=== PATIENT | female | born 2005 | race Caucasian/White ===

== ENCOUNTER 2025-07-09 15:14 | Emergency (ER) | payer OTHER, SELFPAY ==
[2025-07-09 15:27] VITALS: BP 132/88; PULSE 78; RESP 18; TEMP 36.4; O2SAT 100
--- NOTE | 2025-07-09 15:44 | ED_ITS ---
HPI - Female Genitourinary General Chief complaint: Urogenital-Female Stated complaint: Uti Symptoms Time Seen by Provider: 07/09/25 15:35 Source: patient, RN notes reviewed and old records reviewed Mode of arrival: ambulatory Limitations: no limitations History of Present Illness HPI Narrative: 19 year old female who presents to [facility] care with complaints of suprapubic pressure and burning with urination for the past 2 days. Patient reports burning is mainly at the end of her stream of urine. Patient reports no pain to her back, some suprapubic pressure though. She states that she has not had any fevers chills or sweats,denies any nausea or vomiting or any diarrhea.Reports no concern for STD exposure. MD elicited complaint: dysuria Onset (ago): day(s) (2) Location of symptoms: suprapubic and urethra Severity: mild Severity scale (1-10): 3 Vaginal discharge: none Vaginal bleeding: none Urinary symptoms: Dysuria Treatment prior to arrival: none Related Data Home Medications ?Medication ?Instructions ?Recorded ?Confirmed ?Last Taken ?Type levonorgestrel 0.15 mg-ethinyl 07/09/25 Unknown Hist ory estradiol 30 mcg tablets,3 mos pack(91) Allergies Allergy/AdvReac Type Severity Reaction Status Date / Time No Known Allergies Allergy Verified 07/09/25 15:34 Review of Systems Review of Systems: CONSTITUTIONAL: Denies fever, chills, or sweats. CARDIOVASCULAR: Denies chest pain, palpitations, or edema. RESPIRATORY: Denies cough or dyspnea. GASTROINTESTINAL: Reports suprapubic pressure, no other abdominal pain, no nausea, vomiting, or diarrhea. GENITOURINARY: Reports dysuria, frequency, urgency. Denies flank pain or hematuria. SKIN: Denies rash or itching. MUSCULOSKELETAL: Denies back pain or myalgia. Denies CVA tenderness NEUROLOGIC: Denies headache All systems reviewed & are unremarkable except as noted in HPI and below PMFSH Social History Social History (Updated 07/11/25 @ 07:54 by Lizbet Snowden APRN) Alcohol intake: never Substance use: never Gender identity (if verbalized by the patient): Female Comments At time of signature, agree with nursing past medical, surgical, social and family history. There is no relevant family history pertinent to the presenting complaint Exam Narrative: GENERAL: Well-appearing, well-nourished, and in no acute distress. HEAD: Normocephalic, atraumatic. NECK: Supple.no lymphadenopathy CHEST: Clear to auscultation. No respiratory distress. SAO2 100% on room air HEART: Regular rate and rhythm. No murmur heard. Normal peripheral pulses. ABDOMEN: Soft, suprapubic pressure, no McBurney point tenderness, nondistended, normal active bowel sounds. No CVA tenderness, burning with urination EXTREMITIES: Normal range of motion. No edema. SKIN: Warm, dry, no rash. NEURO: No focal deficits. Alert and oriented x3. Course Course Emergency Course: Patient is aware of diagnosis, understands and agrees to treatment plan.? Anticipatory guidance given.? Patient agrees to follow-up as directed and is aware of reasons to seek care at the emergency department. Portions of this record may have been created with voice recognition software Level of Care: Express Care Visit Vital Signs Vital signs: Vital Signs Temperature 36.4 C 07/09/25 15:27 Pulse Rate 78 07/09/25 15:27 Respiratory Rate 18 07/09/25 15:27 Blood Pressure 132/88 07/09/25 15:27 Pulse Oximetry 100 07/09/25 15:27 Temperature 36.4 C 07/09/25 15:27 Pulse Rate 78 07/09/25 15:27 Respiratory Rate 18 07/09/25 15:27 Blood Pressure 132/88 07/09/25 15:27 Pulse Oximetry 100 07/09/25 15:27 reviewed MDM - Female Genitourinary MDM Narrative Medical decision making narrative: Exam findings and UA show no acute concerns or changes; patient is non-toxic appearing and is in no distress.? Patient is appropriate for outpatient treatment and follow-up. Differential Diagnosis Differential diagnosis: Likely urinary tract infection, cystitis and other (dysuria. suprapubic pressure) Medical Records Attestation: I reviewed the patient's medical records. Lab Data Attestation: I reviewed the patient's lab results. Lab results narrative: urine dip:yellow clear no blood noted, negative nitrite, trace leukocytes Labs: Lab Results 07/09/25 Range/Units 15:46 POC Urine Color Yellow POC Urine Clarity Clear POC Urine pH 6.5 POC Ur Specif Roann 1.010 POC Urine Protein Negative (Negative) POC Ur Glucose (UA) Negative (Negative) POC Urine Ketones Negative (Negative) POC Urine Blood Trace (Negative) POC Urine Nitrite Negative (Negative) POC Urine Bilirubin Negative (Negative) POC Urine Urobilinogen 0.2 POC U Leukocyte Esteras Trace (Negative) reviewed Critical Care Time Critical Care Time Critical Care Time: No Discharge Plan Discharge Clinical Impression: Urinary tract infection symptoms Patient Disposition: Home Condition: Stable Instructions: Antibiotic Form, Urinary Tract Infection in Women (ED) Additional Instructions: Increase fluids especially cranberry juice and water Avoid caffeine and carbonated beverages Antibiotic as directed Tylenol/ibuprofen for pain or fever per Package instructions Follow-up with her primary care provider if further problems or concerns Recheck if you have fever over 101, nausea and vomiting. If your symptoms persist, change or worsen significantly before you can contact your personal physician then please, without delay, go to the emergency department for further evaluation. Follow-up with PCP in 7-10 days or sooner if needed Follow up with PCP soon in regards to your blood pressure which is elevated above threshold for referral. Blood pressure above 120/80 may indicate pre- hypertension. 132/88 Patient Language: Sinhala Prescriptions: New cephalexin 500 mg capsule 500 mg PO Q12H Qty: 20 0RF No Action levonorgestrel-ethinyl estrad 0.15 mg-30 mcg (91) tablets,dose pack,3 month Follow-up/Referrals: PHYSICIAN,EDUCATIONAL AUDIOLOGIST [Primary Care Provider, Internal Medicine] Time of Disposition: 16:05 Quality Riddhi Coma Scale Eyes: Open Verbal: Oriented and Alert Motor: Follows Commands Hardy Coma Total Score: 15
[2025-07-09 15:50] LABS: EDUAAPPEAR Clear; EDUABILI Negative (Negative); EDUABLOOD Trace (Negative); EDUACOLOR1 Yellow; EDUAGLUCOSE Negative (Negative); EDUAKETONE Negative (Negative); EDUALEUKO Trace (Negative); EDUANITRATE Negative (Negative); EDUAPH 6.5; EDUAPROTEIN Negative (Negative); EDUASPGRAVITY 1.010; EDUAUROBILI 0.2
== END 2025-07-09 16:11 | disposition home or self-care (01) ==
PROVIDERS: Emergency Provider Registered Nurse
DX: N39.0 Urinary tract infection, site not specified (principal)
CPT/HCPCS: 81003; 87086; 99213; G0463